=== PATIENT | female | born 1935 | race Caucasian/White ===

== ENCOUNTER 2017-11-03 05:57 | Day surgery (SDC) | payer MEDICARE, OTHER ==
--- NOTE | 2017-10-30 21:09 | HP ---
CC: Dr. Lantigua * ADMITTING HISTORY AND PHYSICAL: DATE OF ADMISSION: 11/03/17 ADMITTING DIAGNOSES: 1. Microscopic hematuria. 2. Probable bladder tumor. PLANNED PROCEDURE: Cystoscopy, transurethral resection of bladder tumor. SURGEON: Dr. Hansen. HISTORY OF PRESENT ILLNESS: Sara Moreira is an 82-year-old chronic smoker, who was recently seen in followup for hematuria. 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 She is now being brought in for transurethral resection of the bladder lesion. PAST MEDICAL HISTORY: Essentially unremarkable. She is in excellent health and there is no history of diabetes mellitus or any other major systemic illness. PAST SURGICAL HISTORY: Significant for: 1. Hysterectomy and anteroposterior repair. 2. Back surgery. 3. Bilateral hand surgery. MEDICATIONS ON ADMISSION: No prescription medications. ALLERGIES AND INTOLERANCES: SCOPOLAMINE. SOCIAL HISTORY: Smoking history: She has a chronic lifelong 60 pack-year smoking history. PHYSICAL EXAMINATION GENERAL: Reveals a pleasant, healthy-appearing elderly lady. VITAL SIGNS: Blood pressure is 110/70, pulse 63 per minute and regular, oxygen saturation 99% on room air. LUNGS: Clear bilaterally. CARDIOVASCULAR: Regular rate and rhythm. S1, S2. ABDOMEN: Soft without masses. IMPRESSION: An 82-year-old chronic smoker with microscopic hematuria and the above- described bladder lesion. PLAN: Planned procedure is transurethral resection of bladder lesion. [id number] #: [id number] MTDD
[~2017-11-03 05:57] MED LIST: Buffered Lidocaine 0.9% SYRIN* 5 ML/SYR SYRINGE INTRADERM ONE
[2017-11-03] MEDS ORDERED: Dexamethasone IV* 4 MG/ML 1 ML (4 MG) IV SLOW PU ONE (06:00)
[2017-11-03] MEDS ORDERED: Famotidine IV* 10 MG/ML 2 ML (20 mg) IV ONE (06:00)
[2017-11-03] MEDS ORDERED: Dexamethasone IV* 4 MG/ML 1 ML (4 MG) ONE (06:09)
[2017-11-03] MEDS ORDERED: Famotidine IV* 10 MG/ML 2 ML (20 mg) ONE (06:09)
[2017-11-03] MEDS ORDERED: cefTRIAXone(*) 2 GM ADDV.VIAL IVPB ONE (06:10)
[2017-11-03] MEDS ORDERED: fentaNYL* 50 MCG/ML 2 ML VIAL (100 MCG VIAL) ONE (07:24)
[2017-11-03] MEDS ORDERED: Furosemide IV* 10 MG/ML 2 ML VIAL (20 MG) ONE (07:51)
[2017-11-03 10:42] VITALS: BP 128/69
[2017-11-03] MEDS ORDERED: Naloxone* 0.4 MG/ML 1 ML VIAL IV PRN (11:16)
--- NOTE | 2017-11-03 21:35 | OP ---
CC: Dr. Omar Lantigua * DATE OF OPERATION: 11/03/17 - [facility] DATE OF : 33 SURGEON: Amanuel Hansen MD ANESTHESIOLOGIST: Jose Terrazas MD ANESTHESIA: Spinal. PRE-OP DIAGNOSES: 1. Hematuria. 2. Bladder lesion. POST-OP DIAGNOSES: 1. Hematuria. 2. Bladder lesion. OPERATIVE PROCEDURE: Cystoscopy, transurethral resection and fulguration of bladder lesion (2.5 to 3 cm aggregate). INDICATIONS: Sara Moreira is an 82-year-old chronic smoker, who was evaluated for hematuria and was noted to have the above-mentioned findings on office cystoscopy. OPERATIVE FINDINGS: 1. Cystocele. 2. Two to three lesions congruent at junction of posterior bladder wall and dome with appearance consistent with low-grade superficial transitional neoplasm. COMPLICATIONS: None. POSTOPERATIVE CONDITION: Stable. ESTIMATED BLOOD LOSS: Minimal. DESCRIPTION OF PROCEDURE: After induction of spinal anesthesia, the patient was placed in dorsal lithotomy position. Sequential compression devices were in place and functioning. Initial evaluation revealed a second-degree prolapse and some mild urethral stenosis. The bladder was examined. The right and left ureteral orifices were normal in position and configuration. There was no evidence of any high-grade or invasive appearing tumor. At the junction of the posterior bladder wall and dome, the above-mentioned findings were noted. Using a biopsy forceps, entry level marketing representative biopsies were obtained and sent for histopathology. Next, the resectoscope was introduced, and all of the abnormal areas were resected and all fulgurated. At the end of the procedure, hemostasis appeared satisfactory and there was no evidence of bladder perforation. A 20-Peruv[place] Haynes catheter was placed for temporary bladder drainage. The patient tolerated the procedure satisfactorily and was transferred back to the recovery area in stable condition. [id number]/[facility] #: [id number] [facility]
== END 2017-11-03 10:46 | disposition home or self-care (01) ==
LOC: OR 05:57
PROVIDERS: ATTEND Urology
DX: C67.4 Malignant neoplasm of posterior wall of bladder (principal); R31.29 Other microscopic hematuria; Z72.0 Tobacco use; J44.9 Chronic obstructive pulmonary disease, unspecified; M54.30 Sciatica, unspecified side; M54.9 Dorsalgia, unspecified
CPT/HCPCS: 88305; J0696; J1100; J1940; J3010

== ENCOUNTER 2018-08-17 13:18 | Emergency (ER) | payer MEDICARE, OTHER ==
[2018-08-17 13:44] VITALS: BP 149/55
--- NOTE | 2018-08-17 15:03 | ED ---
Throat Pain/Nasal Congestion - HPI Summary HPI Summary: 83 yo WF p/w yellow green productive cough that started with right ear pains x 5 days denies f/c - History of Current Complaint Chief Complaint: UCRespiratory Hx Obtained From: Patient Onset/Duration: Sudden Onset Severity: Moderate Cough: Productive - Epiglottits Risk Factors Epiglottis Risk Factors: Negative - Allergies/Home Medications Allergies/Adverse Reactions: Allergies Allergy/AdvReac Type Severity Reaction Status Date / Time scopolamine Allergy Intermediate Altered Verified 08/17/18 13:45 Mental Status bees Allergy Severe Swelling Uncoded 08/17/18 13:45 PMH/Surg Hx/FS Hx/Imm Hx Previously Healthy: Yes Endocrine/Hematology History: Denies: Hx Diabetes, Hx Thyroid Disease Cardiovascular History: Denies: Hx Hypertension, Hx Pacemaker/ICD, Other Cardiovascular Problems/ Disorders Respiratory History: Reports: Hx Chronic Obstructive Pulmonary Disease (COPD) Denies: Hx Asthma, Other Respiratory Problems/Disorders GI History: Denies: Hx Ulcer, Other GI Disorders History: Denies: Hx Renal Disease, Other Problems/Disorders Musculoskeletal History: Reports: Hx Arthritis - hands, Hx Back Problems, Other Musculoskeletal History - 06/2013 Broke nose in a fall, left shoulder and right hand pain Sensory History: Reports: Hx Cataracts - Bilateral cataracts removed, Hx Contacts or Glasses - Reading glasses Denies: Hx Glaucoma, Hx Hearing Aid Opthamlomology History: Reports: Hx Cataracts - Bilateral cataracts removed, Hx Contacts or Glasses - Reading glasses Denies: Hx Glaucoma Neurological History: Reports: Other Neuro Impairments/Disorders - PAIN CLINIC PT. Psychiatric History: Denies: Hx Panic Disorder - Cancer History Hx Chemotherapy: No Hx Radiation Therapy: No - Surgical History Surgery Procedure, Year, and Place: Hysterectomy,. Hernia. L5-S1 laminotomy with exc of herniated disk- 2008. Bilateral CATARACTS , HANDS- TRIGGER FINGER, BONES - NO METAL REMAINING. Tonsils. HERNIA. CYST - REMOVED Lt BREAST - BENIGN. Cystocele, uterine prolapse surgery 1987 Hx Anesthesia Reactions: Yes - Scopolomine -altered mental status per pt with childbirth Infectious Disease History: No Infectious Disease History: Denies: Hx Hepatitis, Hx Human Immunodeficiency Virus (HIV), Traveled Outside the [place] in Last 30 Days - Social History Alcohol Use: None Substance Use Type: Reports: None Smoking Status (MU): Heavy Every Day Tobacco Smoker Type: Cigarettes Amount Used/How Often: 1/2 PPD >60 years Have You Smoked in the Last Year: Yes Review of Systems Negative: Fever, Chills Eyes: Negative Positive: Ear Ache. Negative: Nasal Discharge Positive: Cough - with sputum. Negative: Shortness Of Breath Musculoskeletal: Negative Skin: Negative Neurological: Negative Psychological: Normal All Other Systems Reviewed And Are Negative: Yes Physical Exam Triage Information Reviewed: Yes Vital Signs On Initial Exam: Initial Vitals Temp Pulse Resp BP Pulse Ox 37.1 C 65 16 149/55 100 08/17/18 13:42 08/17/18 13:42 08/17/18 13:42 08/17/18 13:42 08/17/18 13:42 Vital Signs Reviewed: Yes Appearance: Positive: Well-Appearing Skin: Positive: Warm Eyes: Positive: Normal ENT: Positive: Normal ENT inspection Respiratory/Lung Sounds: Positive: Rhonchi - with cough Cardiovascular: Positive: RRR, S1, S2 Abdomen Description: Positive: Nontender Musculoskeletal: Positive: Normal Neurological: Positive: Normal Psychiatric: Positive: Normal Diagnostics - Vital Signs Vital Signs Temp Pulse Resp BP Pulse Ox 08/17/18 13:42 37.1 C 65 16 149/55 100 - Laboratory Lab Statement: Any lab studies that have been ordered have been reviewed, and results considered in the medical decision making process. EENT Course/Dx - Diagnoses Provider Diagnoses: Bronchitis Discharge - Sign-Out/Discharge Documenting (check all that apply): Patient Departure All imaging exams completed and their final reports reviewed: No Studies - Discharge Plan Condition: Stable Disposition: HOME Prescriptions: Azithromyxin CARRIE (NF) [Z-Carrie (Zithromax) 250 mg tabs #6] 2 tab PO .TODAY, THEN 1 DAILY #6 tab Patient Education Materials: Acute Bronchitis (ED) Referrals: Omar Lantigua MD [Primary Care Provider] - Additional Instructions: Started Mucinex DM and antibiotic tonight - Billing Disposition and Condition Condition: STABLE Disposition: Home
== END 2018-08-17 15:05 | disposition home or self-care (01) ==
LOC: UCEAST 13:18
DX: J40 Bronchitis, not specified as acute or chronic (principal); F17.210 Nicotine dependence, cigarettes, uncomplicated; Z88.8 Allergy status to other drugs, medicaments and biological substances
CPT/HCPCS: 99212; G0463

== ENCOUNTER → 2019-01-23 11:12 | Day surgery (SDC) | payer MEDICARE, OTHER ==
[~2019-01-23 11:12] MED LIST changes: +Benzocaine/Butamben/Tetracain (CETACAINE - SINGLE USE) 5 gm TOPICAL ONE; -Buffered Lidocaine 0.9% SYRIN* 5 ML/SYR SYRINGE INTRADERM ONE; +Buffered Lidocaine 1% SYRIN* 1 ML/SYRINGE INTRADERM ONE; +Dexamethasone IV* 4 MG/ML 1 ML (4 MG) ONE; +Lactated Ringers 1000 ML Bag* 1,000 ML IV SCH; +Lidocaine 2% PF * 5 ML VIAL ONE; +Naloxone* 0.4 MG/ML 1 ML VIAL IV PRN; +Naloxone* 0.4 MG/ML 10 ML VIAL ONE; +Propofol* 10 MG/ML 20 ML BTL ONE; +Rocuronium* 10 MG/ML VIAL ONE; +Sodium Citrate/Citric Acid* 15 ML UDC ONE; +Sodium Citrate/Citric Acid* 15 ML UDC PO ONE; +Sugammadex * 200 MG/2 ML VIAL IV PUSH ONE; +fentaNYL* 50 MCG/ML 2 ML VIAL (100 MCG VIAL) ONE
--- NOTE | 2019-01-23 14:16 | BRIEFOPN ---
Brief Operative/Procedure Note - Operation Details Pre-Op Diagnosis: Rt sided lung cancer Post-Op Diagnosis: Negative for metastatic disease in lymph nodes Procedures: Bronchoscopy/EBUS Surgeon(s)/Proceduralists: Deja Mayer Anesthesia: GA, Dr Sue Estimated Blood Loss: None Findings: Negative for metastatic disease in L4, station 7, R4 Specimen(s)/Culture(s) Description: Cytology from nodes Complications: None
[2019-01-23 15:59] VITALS: BP 139/74
--- NOTE | 2019-01-23 21:09 | PRO ---
BRONCHOSCOPY REPORT: DATE OF PROCEDURE: 01/23/19 PROCEDURE PERFORMED: Bronchoscopy with endobronchial ultrasound guided fine needle aspiration of mediastinal nodes for lung cancer staging. PREPROCEDURAL DIAGNOSIS: Adenocarcinoma of the right lung. POSTPROCEDURAL DIAGNOSIS: Negative for metastatic disease. ANESTHESIA: General anesthesia. ANESTHESIOLOGIST: Dr. Sue. DESCRIPTION OF PROCEDURE: Informed consent was obtained from the patient prior to the procedure after all the risks and benefits were thoroughly explained. The patient was intubated with size 8.5 endotracheal tube. Appropriate time- out was performed and agreed on by attending staff. Flexible Olympus bronchoscope was inserted through ET tube for airway inspection. No endobrachial lesions were noted. Thick secretions were noted and were suctioned. Broncho-scope was then removed and EBUS bronchoscope was inserted. Station L4 lymph node was minimally enlarged at 0.4 cm and was accessed with 1 pass. Rapid onsite evaluation revealed lymphatic tissue. No malignant cells were noted. No other enlarged nodes were noted on the left side. Bronchoscope was then advanced into the side bronchial tree and station 7 was accessed with 1 pass. Rapid onsite evaluation revealed lymphatic tissue. No malignant cells noted. R4 was also only minimally enlarged at 0.4 cm and was accessed with 2 passes. Rapid onsite evaluation revealed lymphatic tissue with no malignant cells. Rest of the specimen was placed in CytoLyt. Bronchoscope was then withdrawn and Olympus bronchoscope was inserted for airway inspection. No significant bleeding was noted. Mucous was suctioned and bronchoscope was withdrawn. The patient tolerated the procedure well. The patient was extubated and seen in Recovery in optimal condition. [id number]/[facility] #: [id number] MTDD
== END | disposition home or self-care (01) ==
LOC: OR 11:12
PROVIDERS: ATTEND Internal Medicine
DX: C34.91 Malignant neoplasm of unspecified part of right bronchus or lung (principal); Z72.0 Tobacco use; J44.9 Chronic obstructive pulmonary disease, unspecified; M19.90 Unspecified osteoarthritis, unspecified site; I73.9 Peripheral vascular disease, unspecified
CPT/HCPCS: 88172; 88173; 88305; A9270-GY; J1100; J2310; J2704; J3010

== ENCOUNTER 2020-04-20 20:24 | Inpatient (IN) ==
[2020-04-20 21:34] LABS: ABS Monocytes 0.8 10^3/ul (0-0.8); ABS Neutrophils 10.1 10^3/ul (1.5-7.7); Eosinophil % 0.1 %; Hematocrit 38 % (35-47); Hemoglobin 12.4 g/dL (12.0-16.0); Lymphocyte % 8.2 %; Mean Corpuscular HGB Conc 33 g/dL (31-36); Mean Corpuscular Hemoglobin 32 pg (27-31); Mean Corpuscular Volume 97 fL (80-97); Mean Platelet Volume 9.5 fL (7.4-10.4); Platelet Count 195 10^3/uL (150-450); Red Blood Count 3.95 10^6 /uL (3.70-4.87); Red Cell Distribution Width 14 % (10-15); White Blood Count 11.9 10^3/uL (3.5-10.8)
[2020-04-20 21:47] LABS: INR 1.06 (0.82-1.09)
[2020-04-20 21:49] LABS: Albumin 4.1 g/dL (3.2-5.2); Albumin/Globulin Ratio 1.4 (1-3); BUN/Creatinine Ratio 35.5 (8-20); C Reactive Protein 83.1 mg/L (<8.01); Calcium 9.8 mg/dL (8.6-10.3); EGFR African American 110.4 (>60); EGFR Non-African American 91.3 (>60); Potassium 3.7 mmol/L (3.5-5.0); Total Protein 7.1 g/dL (6.4-8.9)
[2020-04-20 21:51] LABS: Troponin I 0.01 ng/mL (<0.03)
[2020-04-20 22:45] LABS: Erythrocyte Sed Rate 58 mm/Hr (0-29)
[2020-04-21] MEDS ORDERED: Ondansetron 4 mg VIAL 2 MG/ML 2 ml VIAL IV PRN (00:07)
[2020-04-21] MEDS ORDERED: NS 0.9% 1000 ml BAG 1,000 ML IV SCH (00:15)
[2020-04-21] MEDS ORDERED: Albuterol 2.5mg/3 ml (0.083%) NEB.SOLN INH PRN (00:36)
[2020-04-21 01:04] LABS: Urine Appearance Clear; Urine Bilirubin Negative (Negative); Urine Blood 1+ (Negative); Urine Color Yellow; Urine Glucose Negative (Negative); Urine Ketones Trace (Negative); Urine Nitrite Negative (Negative); Urine Protein 1+(30 mg/dL) (Negative); Urine Urobilinogen Negative (Negative)
[2020-04-21 01:11] LABS: Urine Bacteria Absent (Absent); Urine Red Blood Cell 3+(>10/hpf) (Absent); Urine Squamous Epithelial Cell Present (Absent); Urine White Blood Cell 1+(6-10/hpf) (Absent)
[2020-04-21] MEDS: Lidocaine PATCH 5% PATCH TRANSDERM SCH ×2 (03:42→09:05)
[2020-04-21 04:34] LABS: ABS Lymphocytes 0.9 10^3/ul (1.0-4.8); ABS Monocytes 0.8 10^3/ul (0-0.8); ABS Neutrophils 9.9 10^3/ul (1.5-7.7); Eosinophil % 0.1 %; Hematocrit 34 % (35-47); Hemoglobin 11.5 g/dL (12.0-16.0); Lymphocyte % 7.4 %; Mean Corpuscular HGB Conc 34 g/dL (31-36); Mean Corpuscular Hemoglobin 32 pg (27-31); Mean Corpuscular Volume 95 fL (80-97); Mean Platelet Volume 9.1 fL (7.4-10.4); Platelet Count 172 10^3/uL (150-450); Red Blood Count 3.57 10^6 /uL (3.70-4.87); Red Cell Distribution Width 13 % (10-15); White Blood Count 11.5 10^3/uL (3.5-10.8)
[2020-04-21 04:52] LABS: Activated Partial Thrombo Time 29.6 seconds (26.0-38.0); INR 1.13 (0.82-1.09)
[2020-04-21 05:00] LABS: Calcium 8.6 mg/dL (8.6-10.3); EGFR African American 129.5 (>60); Potassium 3.4 mmol/L (3.5-5.0)
[2020-04-21] MEDS: Heparin 5000 UNITS/ML 1 mL VIAL SUBCUT SCH ×3 (05:12→21:50)
[2020-04-21] MEDS ORDERED: Potassium Chlor 20 meq TAB.ER PO ONE (18:13)
[2020-04-21] MEDS: Lidocaine Patch REMOVE PATCH PATCH OFF SCH (21:51)
[2020-04-22] MEDS: Heparin 5000 UNITS/ML 1 mL VIAL SUBCUT SCH ×3 (05:56→20:33)
[2020-04-22] MEDS: Lidocaine PATCH 5% PATCH TRANSDERM SCH (09:09)
[2020-04-22] MEDS: Polyethylene Glycol 3350 17 GM PACKET PO SCH (14:55)
[2020-04-22] MEDS: Lidocaine Patch REMOVE PATCH PATCH OFF SCH (20:34)
[2020-04-23] MEDS: Heparin 5000 UNITS/ML 1 mL VIAL SUBCUT SCH ×2 (05:35→15:02)
[2020-04-23] MEDS ORDERED: Polyethylene Glycol 3350 17 GM PACKET PO ONE (10:32)
[2020-04-23] MEDS: Polyethylene Glycol 3350 17 GM PACKET PO SCH (10:40)
[2020-04-23] MEDS: Lidocaine PATCH 5% PATCH TRANSDERM SCH (10:41)
[2020-04-23 18:16] VITALS: BP 124/59
== END 2020-04-23 17:40 | disposition home health service (06) | DRG 536 ==
LOC: ED 20:24 → MED 04-21 00:01 → MEDTELE 04-22 17:00
PROVIDERS: ADMIT Student in an Organized Health Care Education/Training Program; ATTEND Internal Medicine